=== PATIENT | male | born 1955 | race Caucasian/White ===

== ENCOUNTER → 2018-11-10 | Outpatient (CLI) | payer MEDICARE ==
[~2018-11-10] MED LIST: ATORVASTATIN CA10 MG PO; BACTRIM DS TAB1 EACH PO; BACTROBAN15 GM TOP; DOXYCYCLINE HY100 MG PO; GLUCOTROL10 MG PO; IOPAMIDOL 370 MG/ML 200 ML INFUS..BTL INJ ONE; ISONIAZID300 MG PO; MELOXICAM15 MG PO; METFORMIN HCL500 MG PO; PEGASYS180 MCG/0. SQ; PRINIVIL10 MG PO; RIBAPAK PO; SODIUM CHLORIDE 0.9% 100 ML 100 ML ONE; VITAMIN B-650 MG PO
[2018-11-10 14:54] LABS: BLOOD UREA NITROGEN 11 mg/dL (7-26); BUN/CREATININE RATIO 13 (6-25); CREATININE, SERUM 0.84 mg/dL (0.72-1.25); EST GLOMERULAR FILTRATION RATE > 60 ML/MIN (60-)
--- NOTE | 2018-11-10 17:02 | Diagnostic Imaging Report ---
PROCEDURE: CTA ABD/PEL/BILATERAL LOWER EXT RUNOFF W & W/O CONTRAST COMPARISON:[facility], CT, CTA LOWER EXTREMITIES BILAT, 08/21/2014, 13:59. INDICATIONS:BLOCKAGE TECHNIQUE: Multi-detector CT technology with Dose Reduction was employed. Images were obtained after the administration of 100 cc of Omnipaque 350 intravenously. For optimization of anatomic evaluation, multiplanar and volume rendering reconstructions were performed. Advanced 3-D off-line postprocessing were performed on a dedicated stand-alone workstation under the direct supervision of the interpreting physician. Low-dose technique was utilized. DLP: 799.19 mGy-cm FINDINGS: Abdominal aorta and iliac vessels: Extensive atherosclerotic plaque within the aorta. The superior mesenteric, inferior mesenteric and celiac arteries are patent. Bilateral renal arteries are patent. Occlusion of the infrarenal aorta and both common iliac arteries. External iliac arteries are reconstituted. Enlarged epigastric arteries serve as a collateral pathway. Femoral-popliteal vessels: The common, superficial and profunda femoral arteries are patent. Infrapopliteal vessels: The above the knee and below the knee segments of the popliteal artery are patent. The anterior tibial, posterior tibial and peroneal arteries are patent. Patent three vessel runoff is present in the feet bilaterally. Abdominal and Pelvic soft-tissues and organs: Lung bases: No focal consolidation or parenchymal mass. No pleural effusion or pneumothorax. Liver: Normal parenchyma. No focal mass. Biliary: Gallstones. No intrahepatic or extrahepatic biliary duct dilation. Spleen: No splenomegaly. No focal mass. Pancreas: Normal enhancement. No pancreatic duct dilation. No focal mass or peripancreatic soft tissue inflammatory changes. Adrenal Glands: Fullness of both adrenal glands. Kidneys: No obstructing calculi, hydronephrosis, or solid mass. GI: The stomach, small bowel, and colon are unremarkable. No air-fluid levels. Normal appendix. A moderate amount of retained feces limits intraluminal evaluation of the colon. Peritoneum/Retroperitoneum: No pneumoperitoneum or free intraperitoneal fluid. No lymphadenopathy. No drainable fluid collection. Reproductive Organs: Normal. Musculoskeletal: No acute sclerotic or lucent lesion. Extensive degenerative changes of the lumbar spine. Bilateral hip implants. Also lower spine metallic rods present within L5 and S1. CONCLUSION: 1. 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 2. Small gallstones without evidence of inflammation. 3. Femoral, superficial femoral and popliteal arteries are patent. 4. Three vessel below the knee runoff to the ankles bilaterally. Dheeraj Ga D.O. Dictated by: Dheeraj Ga D.O. on 11/10/2018 at 17:15 Electronically approved by: Dheeraj Ga D.O. on 11/10/2018 at 17:15
== END ==
LOC: CT 14:06
DX: I70.223 Atherosclerosis of native arteries of extremities with rest pain, bilateral legs (principal)
CPT/HCPCS: 36415; 75635; 82565; 84520; Q9967